=== PATIENT | female | born 1970 | race Caucasian/White ===

== ENCOUNTER → 2020-04-14 | Outpatient (CLI) | payer OTHER | LOC: RAD 14:22 | PROVIDERS: ATTEND Family Medicine | DX: R07.89 Other chest pain (principal); R05 Cough | CPT/HCPCS: 71046 ==

== ENCOUNTER → 2020-04-28 | Outpatient (CLI) | payer OTHER | LOC: CT 17:03 | PROVIDERS: ATTEND Otolaryngology | DX: J32.9 Chronic sinusitis, unspecified (principal); J30.9 Allergic rhinitis, unspecified | CPT/HCPCS: 70486 ==